=== PATIENT | male | born 1945 | race Hispanic/Latino ===

== ENCOUNTER 2017-03-15 12:35 | Emergency (ER) | payer MEDICARE ==
[2017-03-15 13:13] LABS: BASOPHILS % (AUTO) 0.4 % (0.0-5.0); EOSINOPHILS % (AUTO) 0.7 % (0.0-8.0); LYMPHOCYTES % (AUTO) 10.3 % (21.0-51.0); MEAN CORPUSCULAR HEMOGLOBIN 29.8 pg (27.0-33.0); MEAN CORPUSCULAR HGB CONC 34.3 g/dL (32.0-36.0); MEAN CORPUSCULAR VOLUME 86.9 fL (79-99); MONOCYTES % (AUTO) 6.8 % (3.0-13.0); NEUTROPHILS % (AUTO) 81.8 % (40.0-77.0); PLATELET COUNT (AUTO) 257 K/uL (130-400); RED CELL DISTRIBUTION WIDTH 15.1 % (11.0-15.5); WHITE BLOOD COUNT (AUTO) 8.8 K/uL (4.8-10.8)
[2017-03-15 13:57] LABS: B-TYPE NATRIURETIC PEPTIDE 876 pg/mL (0-100)
[2017-03-15 14:31] LABS: ALBUMIN 3.3 g/dL (3.5-5.0); BILIRUBIN,TOTAL 0.5 mg/dL (0.2-1.0); POTASSIUM 4.6 mmol/L (3.5-5.1); TOTAL PROTEIN, SERUM 6.4 g/dL (6.0-8.3)
[2017-03-15 14:34] LABS: CREATININE 9.8 mg/dL (0.5-1.5)
[2017-03-15] MEDS ORDERED: NITROGLYCERIN 1GM/1 INCH PACKET TD ONE ×2 (16:25→20:14)
[2017-03-15] MEDS ORDERED: MORPHINE SULFATE 8 MG/ML VIAL ONE (18:20)
[2017-03-15] MEDS ORDERED: MORPHINE SULFATE 2 MG/ML 1ML SYG ONE (19:26)
[2017-03-15] MEDS ORDERED: ORPHENADRINE CITRATE 30 MG/ML ML ONE (19:50)
[2017-03-15] MEDS ORDERED: LIDOCAINE 5% TOPICAL PATCH TP ONE (19:51)
== END 2017-03-15 21:27 | disposition home or self-care (01) ==
LOC: EDH 12:35
DX: S86.812A Strain of other muscle(s) and tendon(s) at lower leg level, left leg, initial encounter (principal); S20.219A Contusion of unspecified front wall of thorax, initial encounter; M54.6 Pain in thoracic spine; I10 Essential (primary) hypertension; I12.0 Hypertensive chronic kidney disease with stage 5 chronic kidney disease or end stage renal disease; N18.6 End stage renal disease; E11.22 Type 2 diabetes mellitus with diabetic chronic kidney disease; E78.5 Hyperlipidemia, unspecified; Z79.4 Long term (current) use of insulin; W01.0XXA Fall on same level from slipping, tripping and stumbling without subsequent striking against object, initial encounter; Y93.89 Activity, other specified; Y92.89 Other specified places as the place of occurrence of the external cause; Y99.8 Other external cause status
CPT/HCPCS: 36415; 70450; 71045; 72125; 72128; 73562; 80053; 83880; 84484 ×2; 85025; 93005 ×2; 96372; 96374; 96376; 99285; J2270; J2360

== ENCOUNTER 2018-06-14 09:30 | Observation (INO) | payer MEDICARE ==
[~2018-06-14] VITALS: Ht 177.8 cm; Wt 64.3 kg
[2018-06-14 09:03] VITALS: BP 121/63
[2018-06-14 09:16] LABS: LYMPHOCYTES % (AUTO) 20.7 % (21.0-51.0); MEAN CORPUSCULAR HGB CONC 31.7 g/dL (32.0-36.0); MEAN CORPUSCULAR VOLUME 84.9 fL (79-99); MONOCYTES % (AUTO) 7.1 % (3.0-13.0); NEUTROPHILS % (AUTO) 70.2 % (40.0-77.0); PLATELET COUNT (AUTO) 240 K/uL (130-400); RED BLOOD CELL COUNT(AUTO) 4.12 MIL/uL (4.50-6.20); WHITE BLOOD COUNT (AUTO) 5.7 K/uL (4.8-10.8)
[2018-06-14 09:23] LABS: CREATININE 7.5 mg/dL (0.5-1.5); POTASSIUM 4.9 mmol/L (3.5-5.1)
[2018-06-14 09:27] LABS: INR 1.01 (0.85-1.15); PARTIAL THROMBOPLASTIN TIME 28.3 SEC (26.3-35.5); PROTHROMBIN TIME 10.6 SEC (9.6-11.6)
[2018-06-14] MEDS ORDERED: FOLI1TAB85 PO (09:35)
[2018-06-14] MEDS ORDERED: PANT40TA25 PO (09:35)
[2018-06-14] MEDS ORDERED: VERA120T11 PO (09:35)
[2018-06-14] MEDS ORDERED: APIX5TAB PO (09:35)
[2018-06-14] MEDS ORDERED: ATOR-2 PO (09:35)
[2018-06-14] MEDS ORDERED: METO100T14 PO (09:35)
[2018-06-14] MEDS ORDERED: INSU100V12 SQ (09:35)
[2018-06-14] MEDS ORDERED: CLON0.1T PO (09:35)
[2018-06-14] MEDS ORDERED: SEVE800T27 PO (09:35)
[2018-06-14] MEDS ORDERED: LOSA100T58 PO (09:35)
[2018-06-14] MEDS ORDERED: SUCR1TAB2 PO (09:35)
--- NOTE | 2018-06-14 09:38 | NUR ---
EKG ABNORMAL EKG REPORTED TO DR. KINCAID, DR KINCAID REQUESTING PREVIOUS EKG FROM PCP OR NUCLEAR CONTROL ROOM OPERATOR, CALLED PTS PCP PENDING CALL BACK.
--- NOTE | 2018-06-14 09:40 | NUR ---
EKG PER DR. SANJIV GRAVES TO PROCEED WITH SURGERY NO NEW ORDERS ON ABNORMAL EKG
[2018-06-21] VITALS (21 sets, daily range): BP systolic 107–159; BP diastolic 31–82
[2018-06-21] MEDS: CEFAZOLIN SODIUM 1 GM VIAL IVP SCH ×2 (06:00→11:05)
[2018-06-21] MEDS ORDERED: SODIUM CHLORIDE 0.9% 1000ML 1,000 ML IV SCH (06:00)
[2018-06-21] MEDS ORDERED: SODIUM BICARB 50MEQ 50ML VIAL ONE (09:11)
[2018-06-21] MEDS ORDERED: LIDOCAINE HCL 1% MDV 50ML VIAL ONE (09:12)
[2018-06-21] MEDS ORDERED: IODIXANOL 320 MG/ML 100 ML VIAL ONE (09:54)
[2018-06-21] MEDS ORDERED: LIDOCAINE PF 2% 5ML ABBOJECT ONE (10:23)
[2018-06-21] MEDS ORDERED: MIDAZOLAM HCL 1 MG/ML 2ML VIAL ONE (10:23)
[2018-06-21] MEDS ORDERED: PROPOFOL 10 MG/ML 20ML VIAL IV ONE (10:23)
[2018-06-21] MEDS ORDERED: FENTANYL CITRATE PF 50 MCG/1 ML 2ML VIAL ONE (10:24)
[2018-06-21] MEDS ORDERED: ROCURONIUM 10MG/1ML SYR 10 MG/ML ML ONE ×2 (10:24→13:00)
[2018-06-21] MEDS ORDERED: GLYCOPYRROLATE 1 MG/5 ML SYRINGE ONE (11:39)
[2018-06-21] MEDS ORDERED: NEOSTIGMINE 5MG/5ML SYR IV ONE (11:39)
[2018-06-21] MEDS ORDERED: PHENYLEPHRINE HCL 10 MG/ML 1ML VIAL IV ONE (11:39)
[2018-06-21] MEDS ORDERED: HEPARIN SODIUM 1000UNIT/ML 10ML VIAL ONE (12:05)
[2018-06-21] MEDS ORDERED: ONDANSETRON HCL 4 MG/2 ML VIAL ONE (12:06)
[2018-06-21] MEDS ORDERED: ONDANSETRON HCL 4 MG/2 ML VIAL IVP PRN (14:30)
[2018-06-21] MEDS ORDERED: MORPHINE SULFATE 2 MG/ML 1ML SYG IV PRN (14:30)
--- NOTE | 2018-06-22 02:01 | NUR ---
PICTURES OF ULCER TAKEN ON SACRUM. UNABLE TO DOWNLOAD PICTURES AT THIS TIME, PRINTERS NON WORKING. COMBATANT DIVER OFFICER AWARE. Addendum: 06/22/18 at 0206 by JANINE CID RN RN WRONG PATIENT/ENTRY
[2018-06-22 03:47] LABS: BASOPHILS % (AUTO) 0.7 % (0.0-5.0); EOSINOPHILS % (AUTO) 0.9 % (0.0-8.0); HEMATOCRIT 32.5 % (42-54); LYMPHOCYTES % (AUTO) 20.1 % (21.0-51.0); MEAN CORPUSCULAR HEMOGLOBIN 27.2 pg (27.0-33.0); MEAN CORPUSCULAR HGB CONC 32.7 g/dL (32.0-36.0); MEAN CORPUSCULAR VOLUME 83.2 fL (79-99); MONOCYTES % (AUTO) 8.9 % (3.0-13.0); NEUTROPHILS % (AUTO) 69.4 % (40.0-77.0); PLATELET COUNT (AUTO) 180 K/uL (130-400); RED CELL DISTRIBUTION WIDTH 15.7 % (11.0-15.5)
[2018-06-22 03:50] VITALS: BP 158/77
[2018-06-22 04:02] LABS: CREATININE 8.4 mg/dL (0.5-1.5)
--- NOTE | 2018-06-22 07:20 | NUR ---
SITTING UP ON SIDE OF BED. AAOX3, RESP.'S EVEN AND UNLABORED. DENIES ANY C/O SOB, DENIES ANY CURRENT PAIN. RIGHT NECK AREA WITH LIGHT DRSG IN PLACE WITH CLEAR OPSITE, D/I. LEFT UPPER CHEST AREA WITH PERMACATH IN PLACE, DRSG IN PLACE, MINIMAL SEROSANGUINEOUS OUTPUT NOTED TO DRSG; AREA SOFT, NO ECCHYMOSIS OR HEMATOMA NOTED. LEFT ARM HD ACCESS WITH (+) BRUIT AND THRILL. DENIES ANY C/O N/V. CALL LIGHT WITHIN REACH, VERBALIZED ABILITY TO USE. BED LOW, SIDE RAILS UP X2.
[2018-06-22 07:57] VITALS: BP 109/65
[2018-06-22] MEDS ORDERED: CLONIDINE HCL 0.1 MG TABLET PO PRN (09:45)
--- NOTE | 2018-06-22 10:30 | NUR ---
REPORT TO Nilam OWENS RN.
--- NOTE | 2018-06-22 11:11 | NUR ---
DR. JACOBS [place] Denise called Dr. Jacobs's office earlier and they were informed of consult. At this time, office was called again and informed that hemodialysis orders are pending on an established hemodialysis patient. [place] Alfreda at Dr. Jacobs's office states she will inform Dr. Jacobs and he will call me back.
--- NOTE | 2018-06-22 11:30 | NUR ---
REPORT Received report for continuity of care from nurse Bustos at 1040. Patient in bed in no distress. Encouraged him to do IS and he is able to do only 500mL. Cooperative. Need to reinforce.
[2018-06-22 11:41] VITALS: BP 165/100
--- NOTE | 2018-06-22 13:22 | NUR ---
DIALYSIS Nurse Nancy ward and she will do dialysis today.
[2018-06-22] MEDS ORDERED: 0.9% SODIUM CHLORIDE 1000 ML IV BAG IV PRN (13:45)
[2018-06-22] MEDS ORDERED: SODIUM CHLORIDE 0.9% 1000ML 1,000 ML IV PRN (13:45)
[2018-06-22] MEDS ORDERED: HEPARIN SODIUM 5000UNIT/ML 1ML VIAL IJ PRN (13:45)
[2018-06-22] MEDS ORDERED: ACETAMINOPHEN 325 MG TAB PO PRN (13:45)
[2018-06-22] MEDS: SUCRALFATE 1 GM TABLET PO SCH ×2 (14:58→21:00)
[2018-06-22 16:23] VITALS: BP 153/88
[2018-06-22] MEDS: SEVELAMER HCL 800 MG TABLET PO SCH (16:42)
--- NOTE | 2018-06-22 17:19 | NUR ---
AFIB Patient undergoing hemodialysis after consent obtained. He developed atrial fibrillation 5-second run and frequent 1-second episodes. Dr. Pham was notified. Orders to consult patient's hydraulic barker operator. Patient stated he does not have an established hydraulic barker operator; confirmed. Obtained order to [facility]. Dr. Phoenix button maker and installer. Stated he will see patient tomorrow. Patient will not be discharge until cleared by hydraulic barker operator per Dr. Pham's order.
[2018-06-22 19:35] VITALS: BP 138/55
[2018-06-22] MEDS: METOPROLOL TARTRATE 50 MG TAB PO SCH (20:59)
[2018-06-22] MEDS: PANTOPRAZOLE SODIUM 40 MG TABLET.DR PO SCH (21:00)
[2018-06-22] MEDS ORDERED: ATORVASTATIN CALCIUM 40 MG TABLET PO SCH (21:00)
[2018-06-22 23:45] VITALS: BP 148/50
[2018-06-22] MEDS: VERAPAMIL HCL 80 MG TABLET PO SCH (23:50)
[2018-06-23 03:24] VITALS: BP 137/53
[2018-06-23 07:57] VITALS: BP 167/79
[2018-06-23] MEDS: SEVELAMER HCL 800 MG TABLET PO SCH (07:59)
[2018-06-23] MEDS: METOPROLOL TARTRATE 50 MG TAB PO SCH (07:59)
[2018-06-23] MEDS: PANTOPRAZOLE SODIUM 40 MG TABLET.DR PO SCH (07:59)
[2018-06-23] MEDS: VERAPAMIL HCL 80 MG TABLET PO SCH (07:59)
[2018-06-23] MEDS: SUCRALFATE 1 GM TABLET PO SCH (07:59)
--- NOTE | 2018-06-23 08:00 | NUR ---
ASSESSMENT PT IS AAOX4 DENIES CP DENIES SOB DENIES SOB DENIES NV. NO COMPLAINTS SITTING UPRIGHT AT BEDSIDE. AM MEDS TAKEN, CALL LIGHT WITHIN REACH. HEART CLINIC TO SEE PATIENT REGARDING CONSULTATION FOR AFIB.
[2018-06-23] MEDS ORDERED: APIXABAN 2.5 MG TABLET PO SCH (09:00)
[2018-06-23] MEDS ORDERED: FOLIC ACID/VITAMIN B COMP W-C 1 MG CAPSULE PO SCH (09:00)
[2018-06-23] MEDS ORDERED: LOSARTAN 100 MG TABLET PO SCH (09:00)
--- NOTE | 2018-06-23 09:50 | NUR ---
Suzanne STONER PA-C ROUNDED ORDERS RECEIVED
--- NOTE | 2018-06-23 10:37 | NUR ---
DC INSTRUCTIONS GIVEN TO PATIENT AND FAMILY. PATIENT AND FAMILY VERBALIZE DC INSTRUCTIONS UNDERSTANDING AGREE TO FOLLOW UP WITH [facility] FOR EVENT MONITOR, DR NAGY AND DIALYSIS OUTPATIENT. PIV REMOVED TO RIGHT LEG, SITE INTACT, CATH TIP INTACT. NO COMPLAINTS. ALL BELONGINGS GATHERED. PAPERWORK SIGNED.
--- NOTE | 2018-06-23 12:57 | NUR ---
DC PLAN SPOKE TO DR. NAGY SAID THAT PATIENT WAS OUTPATIENT OBS. PLAN WAS TO DC YESTERDAY. THE ONLY REASON DID NOT LEAVE WAS A RUN OF VTACH. CARDIO CONSULTED. PENDING VISIT TO DC HOME. Addendum: 06/23/18 at 1258 by JAIME LIANG RN CM Amended: Links added.
[2018-06-24 08:18] LABS: HEPATITIS A ANTIBODY IGM Negative (Negative); HEPATITIS B CORE IGM Negative (Negative); HEPATITIS Bs ANTIGEN SCREEN P Negative (Negative)
== END 2018-06-23 11:36 | disposition home or self-care (01) ==
LOC: DAHIP 06-21 06:45 → INTOOBSV 06-21 06:45 → EDSTATUS 06-21 09:30 → 2AH 06-21 15:34
PROVIDERS: ADMIT Student in an Organized Health Care Education/Training Program; ATTEND Student in an Organized Health Care Education/Training Program
DX: I12.0 Hypertensive chronic kidney disease with stage 5 chronic kidney disease or end stage renal disease (principal); N18.6 End stage renal disease; E11.22 Type 2 diabetes mellitus with diabetic chronic kidney disease; E78.5 Hyperlipidemia, unspecified; I82.C11 Acute embolism and thrombosis of right internal jugular vein; I48.0 Paroxysmal atrial fibrillation; I72.1 Aneurysm of artery of upper extremity; Z79.01 Long term (current) use of anticoagulants; Z85.038 Personal history of other malignant neoplasm of large intestine; Z86.718 Personal history of other venous thrombosis and embolism; Z86.73 Personal history of transient ischemic attack (TIA), and cerebral infarction without residual deficits; Z87.891 Personal history of nicotine dependence; Z99.2 Dependence on renal dialysis; Z79.899 Other long term (current) drug therapy
CPT/HCPCS: 36821; 37607; G0257; 36011; 36415; 36558; 75820; 77001; 80048; 80074; 82948; 84132; 85025; 85610; 85730; 90935; 93005; 96374; 96375; A4218; C1750; G0378; J0690; J1644; J2001; J2250; J2370; J2405; J2704; J2710; J3010; J3490; J7030; Q9967